=== PATIENT | female | born 1965 | race Caucasian/White ===

== ENCOUNTER → 2017-10-12 09:42 | Outpatient (CLI) | payer MEDICARE, OTHER, SELFPAY ==
--- NOTE | 2017-10-12 | DI.CT.S_ITS ---
PROCEDURE: CT LE RT WO CON INDICATIONS: PAIN AND INSTABILITY IN ANKLE TECHNIQUE: Noncontrast 1-1.5 mm axial sections acquired from above the tibiotalar joint to the bottom of the calcaneus, with coronal and sagittal reformats. COMPARISON: None. FINDINGS: Image quality: Excellent. Bones: There are 2 fixation screws within the distal tibia anteriorly. The fixation screws appear intact without associated suspicious lucencies. A surgical tract is also demonstrated more proximally within the tibia extending to the tibiofibular syndesmosis. There also 2 surgical tracts through the medial malleolus. There is mild deformity of the distal tibia and fibula compatible with prior fractures. No acute fracture or dislocation. There is a small corticated ossicle inferior to the medial malleolus consistent with an old avulsion fracture. There is mild osteophytosis along the tibiotalar joint with mild joint space narrowing anterolaterally. There is slight widening of the tibia fibula syndesmosis posteriorly, measuring up to 4 mm. The visualized hindfoot and midfoot structures appear intact. Soft tissues: There is a small tibiotalar joint effusion. The Achilles, flexor, extensor, and peroneal tendons appear grossly intact. Evaluation of the ligaments is limited on CT the anterior and posterior tibiofibular ligaments as well as the calcaneofibular ligament appear grossly intact but slightly thickened. IMPRESSION: 1. Old posttraumatic and postsurgical changes through the distal tibia and fibula as described. 2. 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 3. Slight posterior widening of the syndesmosis. 4. Old avulsion fragment inferior to the medial malleolus. Dictated by: Bello Mitchell M.D. on 10/12/2017 at 10:51 Approved by: Bello Mitchell M.D. on 10/12/2017 at 11:02
== END ==
PROVIDERS: Family Provider Specialist; Visit Provider Podiatrist
DX: M25.571 Pain in right ankle and joints of right foot (principal); M25.371 Other instability, right ankle
CPT/HCPCS: 73700

== ENCOUNTER → 2020-05-20 11:55 | Outpatient (CLI) | payer MEDICARE, OTHER, SELFPAY ==
--- NOTE | 2020-05-20 | DI.RAD.S_ITS ---
PROCEDURE: XR LUMBAR SPINE 2-3V INDICATIONS: low back pain TECHNIQUE: 3 views of the lumbar spine were acquired. COMPARISON: [facility] [place], KEZIA, XR LUMBAR SPINE FLEXION EXTENSION, 06/21/2018, 15:24. FINDINGS: Bones: 5 [id number] vertebrae are present. There is normal bony alignment. No vertebral body compression fractures. No suspicious bony lesions. Prior fusion has been performed crossing from the low thoracic into the lumbosacral spine, from T12-L2. Soft tissues: Overlying bowel gas pattern is normal. No suspicious soft tissue calcifications. IMPRESSION: Normal alignment maintained, no sign of device loosening or disruption involving the thoraco lumbosacral spine fusion from T12 through L2. Dictated by: Hitesh Brown M.D. on 05/20/2020 at 14:11 Approved by: Hitesh Bronw M.D. on 05/20/2020 at 14:14
== END ==
PROVIDERS: Family Provider Specialist; PCP Family Medicine; Referring Provider Registered Nurse; Visit Provider Registered Nurse
DX: M54.5 Low back pain (principal); Z98.1 Arthrodesis status
CPT/HCPCS: 72100

== ENCOUNTER → 2022-11-21 13:55 | Outpatient (CLI) | payer MEDICARE, OTHER, SELFPAY ==
--- NOTE | 2022-11-21 | DI.CT.S_ITS ---
PROCEDURE: CT HEAD/BRAIN WO CON INDICATIONS: Dizziness and giddiness TECHNIQUE: Noncontrast 4.5 mm thick angled axial sections acquired from the foramen magnum to the vertex, with coronal and sagittal reformats. For radiation dose reduction, the following was used: automated exposure control, adjustment of mA and/or kV according to patient size. COMPARISON: None. FINDINGS: Image quality: Excellent. CSF spaces: Basal cisterns are patent. No extra-axial fluid collections. Ventricles are normal in size and shape. Brain: No midline shift. No intracranial masses or hemorrhage. Condon-white matter interface is normal. Skull and face: Calvarium and visualized facial bones are intact, without suspicious lesions. Sinuses: Visualized sinuses and mastoids are clear. IMPRESSION: CT head without acute intracranial abnormalities. No mass or mass effect visualized. Dictated by: Johny Garzon M.D. on 11/21/2022 at 14:23 Approved by: Johny Garzon M.D. on 11/21/2022 at 14:24
== END ==
PROVIDERS: Family Provider Specialist; PCP Family Medicine; Referring Provider Psychiatry & Neurology Neurology; Visit Provider Psychiatry & Neurology Neurology
DX: R42 Dizziness and giddiness (principal)
CPT/HCPCS: 70450